=== PATIENT | female | born 1960 | race Two or more races ===

== ENCOUNTER 2018-01-27 16:04 | Emergency (ER) | payer SELFPAY ==
[~2018-01-27] VITALS: Ht 160 cm; Wt 86.2 kg
[2018-01-27 17:58] VITALS: BP 136/80
== END 2018-01-27 18:30 | disposition home or self-care (01) ==
LOC: ER 16:10
DX: S43.004A Unspecified dislocation of right shoulder joint, initial encounter (principal); I10 Essential (primary) hypertension; E78.5 Hyperlipidemia, unspecified; W19.XXXA Unspecified fall, initial encounter; Y93.89 Activity, other specified; Y99.9 Unspecified external cause status; Y92.59 Other trade areas as the place of occurrence of the external cause
CPT/HCPCS: 23650; 73020; 73030